=== PATIENT | female | born 1970 | race Caucasian/White ===

== ENCOUNTER 2023-06-21 16:01 | Observation (INO) | payer MEDICAID, SELFPAY ==
[2023-06-19 13:20] LABS: Hematocrit 41.5 % (37-47); Hemoglobin 13.2 g/dL (12.0-15.0); Mean Corp Hgb Conc 31.8 g/dL (32-36); Mean Corpuscular Hgb 30.3 pg (27.0-32.0); Mean Corpuscular Volume 95.2 fL (81-99); Mean Platelet Vol. 11.2 fl (6.2-12.0); Platelet Count 232 K/mm3 (150-450); RBC Distribution Width CV 13.9 % (11.6-14.6); RBC Distribution Width SD 49.1 fl (35.1-43.9); Red Blood Count 4.36 M/mm3 (4.2-5.4); White Blood Count 5.7 K/mm3 (4.4-11.0)
[2023-06-19 13:52] LABS: Vitamin B12 432 pg/mL (211-911); Vitamin D,25 Hydroxy 43.2 ng/mL
[2023-06-19 14:05] LABS: ALB/GLOB Ratio 0.9 RATIO (0.9-2.4); AST(SGOT) 16 U/L (15-37); Alanine Aminotransfer ALT/SGPT 26 U/L (13-56); Albumin, Serum 3.6 g/dL (3.2-5.0); Alkaline Phosphatase 79 U/L (45-117); Anion Gap 6 (5-15); BUN 23 mg/dL (7-18); BUN/Creat Ratio 24.4 RATIO (10-20); Calcium,Total 9.3 mg/dL (8.5-10.1); Chloride 105 mmol/L (98-107); Creatinine, Serum 0.94 mg/dL (0.55-1.02); EST Glomerular Filtration Rate 66 mL/min (>60); Est Glom Filt Rate - Afr Amer 80 mL/min (>60); Ferritin 64 ng/mL (8-252); Globulin 3.9 g/dL (2.2-4.2); Glucose 107 mg/dL (74-106); Prealbumin 22.1 mg/dL (20.0-40.0); Protein, Total 7.5 g/dL (6.4-8.2); Sodium Level 139 mmol/L (136-145); Uric Acid 5.7 mg/dL (2.6-6.0)
[2023-06-19 14:06] LABS: Hemoglobin A1c 6.4 % (3.8-5.6)
[2023-06-19 15:02] LABS: International Normalized Ratio 1.2
[2023-06-21] VITALS (13 sets, daily range): BP systolic 120–170; BP diastolic 54–106; PULSE 80–98; RESP 12–18; TEMP 36–36.9; O2SAT 92–100; BMI 43.5; BMI 44.7
--- NOTE | 2023-06-21 | SOF_PTH ---
PATIENT: YANELIS STANLEY LOC: MS3 U#:[id number] AGE/SX: 52/F ROOM: [facility] RE06/21/[address]: Dr. Chidi Mckee MD : 1970 BED: 1 DIS: 06/22/2023 SPEC #: [id number] RECD: 06/22/23 07:48 STATUS: KIRSTEN RESami #: [id number] LUIS: 06/21/23 00:[address]: Chidi Mckee DEPT: SURGICAL PATHOLOGY RECD BY: Renu Mahmood ENTERED: 06/22/23 07:49 SP TYPE: SOFT TISS OTHR DR: Dr. Clau Grimm MD Tissues: Skin of arm Procedures: Surgery Specimen Level IV HEADER OPERATION: Dermolipectomy right arm and axilla PRE-OP DIAGNOSIS: Excessive skin and subcutaneous tissue right arm and axilla TISSUE SUBMITTED: Excessive skin and subcutaneous tissue right arm and axilla MICROSCOPIC DIAGNOSIS Skin and soft tissue of right arm and axilla, excision: Mature adipose tissue with focal fat necrosis. Skin with no pathologic change. AM:michelle 06/23/2023 MICROSCOPIC DESCRIPTION Slides are reviewed. GROSS DESCRIPTION Received is one container labeled with the patient's name and not further designated. The specimen consists of multiple irregular fragments (>30 fragments) of augustine-yellow fibrofatty tissue and adherent skin ranging in size from 1.0 cm to 28.0 cm. Serial sections reveal yellow fatty tissue. No mass lesions are identified. The skin does not contain any lesions. Cane Flume Chute Operator sections are submitted in four cassettes. / AM:michelle 06/22/2023 TC:5 CPT: 38150
[2023-06-21] MEDS: Lactated Ringers 1,000 ML 15 ML IV (06:39)
[2023-06-21 07:03] LABS: Bedside Glucose 119 mg/dL (74-106)
[2023-06-21] MEDS: Clindamycin 900 MG/50 ML BAG 75 MG IV (07:44)
--- NOTE | 2023-06-21 08:07 | HP.PCM_ITS ---
History and Physical Date of Admission: 06/21/23 HISTORY OF PRESENT ILLNESS 52 year old woman presents for evaluation for body contouring after massive weight loss. She lost about 100 lbs over the past four years with her own dieting and exercise program. With the weight loss comes excessive and redundant skin and subcutaneous tissue involving her bilateral arms, bilateral medial thighs, and lower anterior abdominal wall. Her biggest concern is her bilateral arms. She also is being evaluated by Orthopedics regarding her deteriorating shoulder joints. The excess weight from the excessive and redundant skin and subcutaneous tissue may exacerbate the present state of her shoulder joints. She has trouble with activities of daily living because her arms become painful from bumping into things in her home. Also when she cooks, she has developed some samuels on her arms because of the low hanging skin and subcutaneous tissue. In her bilateral axillary areas she has her arm skin rubbing her axillas leading to irritation and intertrigo for which she uses antifungal powders with minimal relief and without resolution of her symptomatology. She has a large abdominal panniculus that overhangs her abdominal wall skin creases which leads to intertrigo for which she uses antifungal powders with minimal relief and without resolution of her symptomatology. She also has excessive and redundant skin and subcutaneous tissue bilateral medial thighs. The thighs rub together leading to irritation and intertrigo in her bilateral medial thighs that also requires antifungal powders with minimal relief and without resolution of her symptomatology.? She also has back pain issues that are exacerbated by the increased weight in her anterior abdominal wall. ? She has deterioration of her hips and knees as well. She is tentatively scheduled for left hip surgery later on this year. We have received medical approval for her dermolipectomy right arm surgery. It is scheduled for June 21, 2023. She had preop lab work on 06/19/23,, (CBC, CMP, Uric acid, Ferritin, Prealbumin, Vitamin B12, Folate, PT/PTT, Vitamin A, Vitamin D, and HgbA1c). Her WBC was 5.7. Her Hgb was 13.2. Her Platelets were 232k. Potassium was 4.0. BUN/Creat was 23/0.94. Alkaline Phosphatase was 79. Uric Acid was 5.7. Ferritin was 64. Prealbumin was 22.1. Vitamin B12 was 432. Folate was 9.10. PT(INR) was 1.2. PTT was 26.0. Vitamin D was 43.2. Vitamin A was pending. HgbA1c was 6.4. PAST MEDICAL HISTORY Abdominal panniculus Arthritis Asthma Back pain Cancer Chronic bronchitis COPD (chronic obstructive pulmonary disease) Depression Pre-diabetes DVT (deep venous thrombosis) Emphysema lung Excessive and redundant skin and subcutaneous tissue Gastric reflux History of DVT (deep vein thrombosis) History of echocardiogram History of edema History of IBS History of pain when walking History of steroid therapy History of stress test IBS (irritable bowel syndrome) Intertrigo Osteoporosis Panniculitis Recent weight loss Skin laxity Smoker Wears glasses PAST SURGICAL HISTORY History of cardiac catheterization History of esophagogastroduodenoscopy (EGD) History of tonsillectomy History of tubal ligation History of umbilical hernia repair History of varicose vein ligation ALLERGIES Penicillins latex MEDICATIONS albuterol sulfate/actuation aerosol inhaler (Ventolin HFA) cyanocobalamin (vitamin B-12) meloxicam metformin omeprazole calcium carbonate-vitamin D3 cetirizine (Allergy Relief (cetirizine) tizanidine liraglutide subcutaneous pen injector (Victoza 3-Anjel) FAMILY HISTORY Heart disease, Hypertension, Seizures SOCIAL HISTORY Smoking Status: Current some day smoker alcohol intake: never REVIEW OF SYSTEMS General - Denies fever. Has fatigue, and weight loss of about 100 lbs over the past 4 years. Eyes - Denies cataracts and glaucoma. ENT - Denies nasal congestion and sore throat. Has chronic sinus problems. Endocrine - Has excessive thirst and urination. Has heat and cold intolerance. Skin - Denies suspicious lesions and skin cancer. Has intertrigo axillary areas, abdominal wall skin crease, and bilateral medial thighs. Musculoskeletal - Has joint pain, joint stiffness, weakness of muscles and joints, back pain, and arthritis. Neuro - Has headaches. Cardiovascular - Has chest pain and fatigue. Denies shortness of breath with exertion. Psych - Has anxiety and depression. Respiratory - Has chronic cough and shortness of breath.? Has asthma.? Patient is a smoker. Gastrointestinal - Denies nausea, vomiting. Has diarrhea, and constipation. Hematologic - Denies abnormal bruising and bleeding. Genitourinary - Denies hematuria. Has urinary frequency. PHYSICAL EXAMINATION General - Alert and Oriented. Height - 68 inches. Weight - 285 1/2 lbs. BSA - 2.38m2. BMI - 43.4%. HEENT - PERRL. EOMI.? Throat is clear. Neck - Supple and nontender.? No cervical adenopathy. Lungs - Clear to auscultation. Heart - Regular rate and rhythm. Abdomen - Soft and nondistended.? Has a large abdominal panniculus in the lower anterior abdominal wall with associated excessive and redundant skin and subcutaneous tissue from the umbilicus to the pubic area.? Some skin laxity noted. There is some dependent edema noted with associated panniculitis. Has abdominal wall skin crease intertrigo.? No active intertrigo noted at this time.? No evidence of infection.? Some tenderness with palpation. Extremities - FROM. No axillary adenopathy.? Radial pulses are palpable.? There is excessive and redundant skin and subcutaneous tissue on the proximal arms bilaterally.? Some skin laxity noted. Measures 26 x 14 cm on the left and 26 x 16 cm on the right. Some tenderness to palpation.? Has bilateral axillary intertrigo.? No active intertrigo noted at this time.? No evidence of infection. There is excessive and redundant skin and subcutaneous tissue on the medial t highs bilaterally. Some skin laxity noted. Some tenderness to palpation. Has bilateral medial thighs intertrigo. No active intertrigo noted at this time. No evidence of infection. Neuro - CN II-XII grossly intact. Psych - Normal mood and affect. ASSESSMENT 1.? Excessive and redundant skin and subcutaneous tissue bilateral arms. 2. Bilateral axillary intertrigo. 3. Abdominal panniculus with associated excessive and redundant skin and subcutaneous tissue. 4. Abdominal panniculitis. 5. Abdominal wall skin crease intertrigo. 6. Excessive and redundant skin and subcutaneous tissue bilateral medial thighs. 7. Bilateral medial thighs intertrigo. 8. Skin laxity. 9. Recent weight loss. 10. Smoker. PLAN Discussed body contouring with the patient with excessive skin and subcutaneous tissue after massive weight loss.? She would benefit from dermolipectomy bilateral arms, and an abdominal panniculectomy, and dermolipectomy bilateral m edial thighs as it would help to relieve her painful symptomatology. She understands the primary goal of this surgery is to improve her symptomatology as well as to improve hygiene, and cosmetic concerns are secondary. After healing of the arms have occurred, can then address the abdomen and then the bilateral medial thighs. Tissue that is removed will be sent to Pathology for analysis to rule out carcinoma. Drains will be placed for several days and be maintained on antibiotics until the drains are removed.? She will wear compression alem wraps and/or compression garments for 6 weeks for the arms and medial thighs surgery. She will wear an abdominal binder for 6 weeks after her panniculectomy. Surgery will be done under general anesthesia with a surgical observation overnight stay in the hospital.? We have received medical approval for her dermolipectomy of her right arm surgery scheduled later this week on June 21, 2023. After her arms have healed, will address the abdomen next and then the bilateral medial thighs. Letters for those surgeries will also be sent to her insurance carrier for medical approval. If the surgeries are not covered, then she will be financially responsible for the procedures. She voices understanding. Patient was informed of the risks and complications of the procedure including alternatives to surgery.? These were discussed with the patient personally.? He voices understanding and wishes to proceed. Some of the risks and complications were included in a form from the [employer]. Potential risks and complications included but not inclusive of bleeding, infection, seroma, hematoma, bruising, swelling, prolonged need for drains, loss of sensation to skin, partial or complete loss of skin flap, wound breakdown, need for wound care, poor scarring, poor aesthetic outcome, intra operative cardiac or neurologic events, DVT, PE, and reaction to anesthesia. Encouraged patient to stop smoking as it may have deleterious effects on wound healing. Patient had some preop questions. These questions were answered personally and to her satisfaction. Her office consent was signed. She had preop lab work on 06/19/23, (CBC, CMP, Uric acid, Ferritin, Prealbumin, Vitamin B12, Folate, PT/PTT, Vitamin A, Vitamin D, and HgbA1c). Her WBC was 5.7. Her Hgb was 13.2. Her Platelets were 232k. Potassium was 4.0. BUN/Creat was 23/0.94. Alkaline Phosphatase was 79. Uric Acid was 5.7. Ferritin was 64. Prealbumin was 22.1. Vitamin B12 was 432. Folate was 9.10. PT(INR) was 1.2. PTT was 26.0. Vitamin D was 43.2. Vitamin A was pending. HgbA1c was 6.4. Assessment & Plan Assessment/Plan (1) Excessive and redundant skin and subcutaneous tissue: (2) Intertrigo: (3) Abdominal panniculus: (4) Panniculitis: (5) Skin laxity: (6) Recent weight loss: (7) Smoker:
[2023-06-21] MEDS: Lidocaine 1% /Epi 1:100 (50ml) 50 ML VIAL (08:36)
[2023-06-21 15:14] LABS: Bedside Glucose 174 mg/dL (74-106)
--- NOTE | 2023-06-21 15:57 | OP.PCM_ITS ---
Problems Associated Problem List Diagnoses (1) Excessive and redundant skin and subcutaneous tissue: (2) Intertrigo: (3) Abdominal panniculus: (4) Panniculitis: (5) Skin laxity: (6) Recent weight loss: (7) Pre-diabetes: (8) Smoker: Report of Operation Date of Procedure: 06/21/23 Pre-Operative Diagnosis: 1. Excessive and redundant skin and subcutaneous tissue bilateral arms. 2. Bilateral axillary intertrigo. 3. Abdominal panniculus with associated excessive and redundant skin and subcutaneous tissue. 4. Abdominal panniculitis. 5. Abdominal wall skin crease intertrigo. 6. Excessive and redundant skin and subcutaneous tissue bilateral medial thighs. 7. Bilateral medial thighs intertrigo. 8. Skin laxity. 9. Recent weight loss. 10. Pre-diabetes with HgbA1c of 6.4 on 06/19/23. 11. Smoker. Post-Operative Diagnosis: Same. Surgery/Procedure Performed:: Dermolipectomy right arm and axilla with 45 cm layered closure. Description of Surgical Findings:: 52 year old woman presents for evaluation for body contouring after massive weight loss. She lost about 100 lbs over the past four years with her own dieting and exercise program. With the weight loss comes excessive and redundant skin and subcutaneous tissue involving her bilateral arms, bilateral medial thighs, and lower anterior abdominal wall. Her biggest concern is her bilateral arms. She also is being evaluated by Orthopedics regarding her deteriorating shoulder joints. The excess weight from the excessive and redundant skin and subcutaneous tissue may exacerbate the present state of her shoulder joints. She has trouble with activities of daily living because her arms become painful from bumping into things in her home. Also when she cooks, she has developed some samuels on her arms because of the low hanging skin and subcutaneous tissue. In her bilateral axillary areas she has her arm skin rubbing her axillas leading to irritation and intertrigo for which she uses anti fungal powders with minimal relief and without resolution of her symptomatology. She has a large abdominal panniculus that overhangs her abdominal wall skin creases which leads to intertrigo for which she uses antifungal powders with minimal relief and without resolution of her symptomatology. She also has excessive and redundant skin and subcutaneous tissue bilateral medial thighs. The thighs rub together leading to irritation and intertrigo in her bilateral medial thighs that also requires antifungal powders with minimal relief and without resolution of her symptomatology.? She also has back pain issues that are exacerbated by the increased weight in her anterior abdominal wall. ? She has deterioration of her hips and knees as well. She is tentatively scheduled for left hip surgery later on this year. We have received medical approval for her dermolipectomy right arm surgery. It is scheduled for June 21, 2023. She had preop lab work on 06/19/23, (CBC, CMP, Uric acid, Ferritin, Prealbumin, Vitamin B12, Folate, PT/PTT, Vitamin A, Vitamin D, and HgbA1c). Her WBC was 5.7. Her Hgb was 13.2. Her Platelets were 232k. Potassium was 4.0. BUN/Creat was 23/0.94. Alkaline Phosphatase was 79. Uric Acid was 5.7. Ferritin was 64. Prealbumin was 22.1. Vitamin B12 was 432. Folate was 9.10. PT(INR) was 1.2. PTT was 26.0. Vitamin D was 43.2. Vitamin A was pending. HgbA1c was 6.4. Patient was informed of the risks and complications of the procedure including alternatives to surgery. These were discussed with the patient personally. Patient voices understanding and wishes to proceed. Some of the risks and complications were included in a form from the [place] [employer]. Potential risks and complications included but not inclusive of bleeding, infection, seroma, hematoma, bruising, swelling, prolonged need for drains, loss of sensation to skin, partial or complete loss of skin flap, wound breakdown, need for wound care, poor scarring, poor aesthetic outcome, intra operative cardiac or neurologic events, DVT, PE, and reaction to anesthesia. Encouraged patient to stop smoking as it may have deleterious effects on wound healing. IV Fluids - 2000 ml. Urine Output - 200 ml. I used Orestes absorbable hemostat, (I used 3 vials in the right arm). Reference Number - [id number]. Lot Number - [id number]. Device ID Number - [id number]. Expiration - December 03, 2027, (2 vials). Reference Number - [id number]. Lot Number- [id number]. Device ID Number - [id number]. Expiration - November 02, 2027, (One vial). Surgeon: Chidi Mckee MD solar[employer]renewable energy sales: Kayy Quintanilla RNFA Type of Anesthesia: General Anesthesiologist: Papito Fiore MD and Analia Harris CRNA Specimen's removed: Right breast tissue to Pathology. Drains: Patrick. Estimated Blood Loss (mL): 150. Fluids Replaced: 2200 ml (IV Fluids 2000 ml, Urine Output 200 ml). Description of Procedure: In the preop area, the patient abducted her right shoulder with her elbow flexed, and I marked out the bicipital groove and a couple cm above that. Doing a pinch test, I estimated the posterior markings that met in the axilla. I extended the markings from the deltopectoral groove onto the lateral chest wall. Patient was taken to OR in supine position and was placed under general anesthesia. The right arm and axilla area was prepped and draped in the usual fashion. SCD's were placed for DVT prophylaxis. Perioperative antibiotics were given intravenously. A meier catheter was placed. Using xylocaine with epinephrine, the markings were infiltrated. After waiting 5 minutes for the anesthetic to take effect, I made a superior incision from the distal arm and moving proximally to the deltopectoral groove. I stayed superior to the medial epicondyle so as not to place the scar over the ulnar nerve in the cubital tunnel. The incision was carried down into the subcutaneous tissue. I located the basilic vein and stayed superficial distally to minimize injury to the medial antebrachial cutaneous nerve. As I dissected proximally toward the axilla I went just a little deeper but left some subcutaneous tissue on the underlying muscular fascia. After the dissection was done up to the axilla, I pulled the posterior skin flap upward and made several case along the incision line. I tacked the posterior skin flap at these case. I then excised the excess tissue starting distally at the elbow and moving proximally. By tailor tacking the posterior skin flap, I was able to gauge the amount of tissue to remove safely to minimize over-resection. The deep subcutaneous tissue and fascia was approximated with 2-0 Vicryl simple interrupted sutures. At the level of the deltopectoral groove, I anchored a suture with 2-0 Vicryl from the fascia of the posterior skin flap to the deltopectoral fascia. This allowed any excess tissue to blend in to the lateral chest wall extension. At this level, I excised down to the chest wall fascia. Prior to final closure, I irrigated the wound with saline. Hemostasis was obtained with electrocautery. I sprayed Orestes absorbable hemostat into the wound to minimize seroma formation. I used 3 vials. I placed a size 15 Patrick drain through a separate stab incision inferiorly on the lateral chest wall and secured to the skin with a 3-0 Nylon purse string suture. I started closing the right arm wound distally with 3-0 Monocryl interrupted sutures for the underlying Dee's fascia and finished at the lateral chest wall. The deep dermis and subcutaneous tissue was approximated with 3-0 Monocryl interrupted sutures. I didn't want to make the axillary closure too tight to avoid possible scar contracture. If that were to happen, then a Z-plasty scar revision would be necessary. Before I did the skin closure, I lifted the arm and good contour was noted without too much tension. The skin was approximated with 3-0 V lock unidirectional barbed running subcuticular suture. I placed a few 4-0 Prolene simple interrupted sutures mostly in the axillary area. This was followed by Histoacryl skin tissue adhesive. The length of the layered closure in the right arm and axilla was 45 cm. I placed Xeroform gauze around the drain along with some antibiotic ointment. Gauze dressing was applied followed by Kerlix gauze and ABD pads followed by alem wrap compression. The tissue that was excised was sent to Pathology for analysis to rule out carcinoma. Patient tolerated the procedure well and was sent to PACU in satisfactory condition. Patient will be sent upstairs for continued postop care. She will be discharged tomorrow on antibiotics and pain medication. She will keep her right arm elevated during the initial postoperative period. Will apply a compression garment in the office after the drain is removed. She will followup in the office next week. The sutures will be removed in two weeks. The drain will be removed in 10-14 days. Grafts/Implants Used: Orestes Procedure Start Time: 08:37 Procedure Stop Time: 14:31 Complications None. Admit VTE Documentation VTE Present on Admission: No VTE Mechan Device Prophylaxis: SCD's and Thigh High PAULIE Hose Addendum Addendum: Surgery Charges CPT - 13389 ICD-10 - L98.7, L30.4, E65, M79.3, L57.4, R63.4, R73.03, F17.200 14524 L98.7, L30.4, E65, M79.3, L57.4, R63.4, R73.03, F17.200
[2023-06-21] MEDS: oxyCODONE 5 MG Tablet 10 MG PO ×2 (18:15→22:39)
[2023-06-21] MEDS: Clindamycin 600 MG/50 ML BAG 100 MG IV (22:15)
[2023-06-21] MEDS: Docusate Sodium 100 MG Capsule PO (22:15)
[2023-06-21] MEDS: Juven (unflavored) Packet 1 PACKET PO (22:15)
[2023-06-21] MEDS: metFORMIN HCl 500 MG Tablet PO (22:15)
[2023-06-21] MEDS: Heparin Injection (Vial) 5,000 UNIT/ML VIAL 5000 UNIT SC (22:16)
[2023-06-21] MEDS: tiZANidine HCl 2 MG Tablet PO (22:39)
[2023-06-21] MEDS: Meloxicam 15 MG Tablet PO (22:53)
[2023-06-22 02:54] VITALS: BP 133/51; PULSE 98; RESP 18; TEMP 36.7; O2SAT 96
[2023-06-22] MEDS: oxyCODONE 5 MG Tablet 10 MG PO ×2 (03:47→09:06)
[2023-06-22 06:17] VITALS: BP 128/59; PULSE 84; RESP 16; TEMP 36.6; O2SAT 99
[2023-06-22] MEDS: Clindamycin 600 MG/50 ML BAG 100 MG IV (06:19)
[2023-06-22 07:07] LABS: Hematocrit 36.3 % (37-47); Hemoglobin 11.5 g/dL (12.0-15.0); Mean Corp Hgb Conc 31.7 g/dL (32-36); Mean Corpuscular Hgb 30.3 pg (27.0-32.0); Mean Corpuscular Volume 95.8 fL (81-99); Mean Platelet Vol. 11.7 fl (6.2-12.0); Platelet Count 195 K/mm3 (150-450); RBC Distribution Width CV 13.9 % (11.6-14.6); RBC Distribution Width SD 49.1 fl (35.1-43.9); Red Blood Count 3.79 M/mm3 (4.2-5.4); White Blood Count 9.7 K/mm3 (4.4-11.0)
[2023-06-22 07:38] LABS: Anion Gap 7 (5-15); BUN 26 mg/dL (7-18); Calcium,Total 8.3 mg/dL (8.5-10.1); Chloride 106 mmol/L (98-107); Creatinine, Serum 0.81 mg/dL (0.55-1.02); EST Glomerular Filtration Rate 78 mL/min (>60); Est Glom Filt Rate - Afr Amer 95 mL/min (>60); Estimated Creatinine Clearance 81.96 ml/min; Glucose 169 mg/dL (74-106); Potassium 4.2 mmol/L (3.5-5.1); Sodium Level 138 mmol/L (136-145)
[2023-06-22] MEDS: Heparin Injection (Vial) 5,000 UNIT/ML VIAL 5000 UNIT SC (09:00)
[2023-06-22] MEDS: metFORMIN HCl 500 MG Tablet PO (09:00)
[2023-06-22] MEDS: Calcium Carb/Vitamin D 1 TABLET Tablet PO (09:00)
[2023-06-22] MEDS: Docusate Sodium 100 MG Capsule PO (09:00)
[2023-06-22] MEDS: Juven (unflavored) Packet 1 PACKET PO (09:00)
[2023-06-22] MEDS: Pantoprazole Sodium 40 MG Tablet PO (09:01)
[2023-06-22] MEDS: tiZANidine HCl 2 MG Tablet PO (09:10)
[2023-06-22 09:14] VITALS: BP 117/65; PULSE 85; RESP 16; TEMP 36.6; O2SAT 100
[2023-06-22] MEDS: Meloxicam 15 MG Tablet PO (11:35)
--- NOTE | 2023-06-22 13:11 | DCINST_ITS ---
Discharge Instructions Diet Discharge Diet: Carb Control Diet (Encourage increase protein intake to help with wound healing.) Activity Discharge Activity: May Not Drive (for 2 weeks) Lifting Restrictions: 5-10 lifting restriction Additional Activity Instructions:: Avoid lifting right arm over head. Dressing / Incision Call your doctor if your incision/area has: Continuous Slow Oozing, Sudden Increased Bleeding, Increased Pain/ Swelling, Increased Redness and Foul Smelling Discharge Call your doctor if you observe: Fever of 101 or Higher, Inability to urinate, Inability to have a bowel movement, Shortness of breath, Chest pain, Calf discomfort and Uncontrolled pain Change Dressing in: leave in place till F/U (change dressing as needed. Keep compression JODY wrap in place.) Cleanse incision/area with: Keep Dressing Clean & Dry Drain: Suction Additional Dressing/Incision Instructions:: Keep track of drainage. Bring with you to the office next week. Follow Up Care Please Follow Up With: Chidi Mckee MD When: Please call the office to be seen next week by either Dr. Mckee or Dia. [phone] Test Results: Test results from this visit will be discussed in further detail at your follow- up appointment, if applicable. Discharge Plan Admission Admit Date/Time: 06/21/23 16:01 Attending Provider: Chidi Mckee Primary Care Provider: Clau Grimm Discharge Orders/Prescriptions Prescriptions: New clindamycin HCl 300 mg capsule 300 mg PO TID 30 Days Qty: 90 0RF Saccharomyces boulardii [Probiotic (S.boulardii)] 250 mg capsule 250 mg PO BID 20 Days Qty: 40 0RF hydrocodone-acetaminophen 5-300 mg tablet 1 tab PO TID PRN (Reason: pain (scale score 7-10)) 7 Days Qty: 21 0RF Rx Instructions: May take up to 3 times during day time hours oxycodone-acetaminophen [Percocet] 5-325 mg tablet 1 tab PO QHS PRN PRN (Reason: pain (scale score 7-10)) 7 Days Qty: 7 0RF Continued cyanocobalamin (vitamin B-12) 1,000 mcg/mL solution 1,000 mcg IM .Q2 WEEKS metformin 500 mg tablet 500 mg PO BID albuterol sulfate [Ventolin HFA] 90 mcg/actuation HFA aerosol inhaler 2 puff inhalation Q4H PRN (Reason: shortness of breath or wheezing) Patient Comments: inhale 2 puffs by mouth every 4 hours if needed for shortness of breath or wheezing omeprazole 40 mg capsule,delayed release(DR/EC) 40 mg PO PRN Victoza 3-Anjel 0.6 mg/0.1 mL (18 mg/3 mL) pen injector 0.6 mg subcut DAILY cetirizine [Allergy Relief (cetirizine)] 10 mg tablet 10 mg PO DAILY PRN (Reason: ALLERGIES) calcium carbonate-vitamin D3 500 mg-3.125 mcg (125 unit) tablet 1 tab PO DAILY tizanidine 2 mg tablet 2 mg PO PRN Patient Comments: take 1 tablet by mouth three times a day for 30 DAYS Held meloxicam 15 mg tablet 15 mg PO DAILY Hold Instructions: Resume on 06/25/23. Please hold until 06/25 to help preve nt bleeding Referrals / Follow Up: Clau Grimm MD [Primary Care Provider] - Disposition Disposition (needs filled in before D/C Order can be placed): Home, Self Care
--- NOTE | 2023-06-22 13:11 | PCM.PN.SRG ---
Subjective Subjective Postop #1 Patient states pain is well controlled. Objective Data Objective Data Vital Signs: Vital Signs Temp Pulse Resp BP Pulse Ox O2 Del Method 97.9 F 85 16 117/65 100 Room Air 06/22/23 09:14 06/22/23 09:14 06/22/23 09:14 06/22/23 09:14 06/22/23 09:14 06/22/23 09:42 Oxygen Delivery Method Room Air Weight: 294 lb 1.546 oz Body Mass Index (BMI) 44.7 Intake & Output: Intake and Output for Last 24 Hours 06/20/23 06/21/23 06/22/23 23:59 23:59 23:59 Intake Total 2247.75 / 2247.75 1585.25 / 1585.25 Output Total 1620 / 1620 705 / 705 Balance 627.75 / 627.75 880.25 / 880.25 Patrick drain 115 ml Lab / Micro Data Attestation: I reviewed the patient's lab results. 06/22/23 06:25 06/22/23 06:25 Labs: Laboratory Results - last 24 hr 06/21/23 14:56: POC Glucose 174 H 06/22/23 06:25: WBC 9.7, RBC 3.79 L, Hgb 11.5 L, Hct 36.3 L, MCV 95.8, MCH 30.3, MCHC 31.7 L, RDW Std Deviation 49.1 H, RDW Coeff of Leonora 13.9, Plt Count 195, MPV 11.7, Sodium 138, Potassium 4.2, Chloride 106, Carbon Dioxide 25.0, Anion Gap 7, BUN 26 H, Creatinine 0.81, Estim Creat Clear Calc 81.96, Est GFR (MDRD) Af Amer 95, Est GFR (MDRD) Non-Af 78, BUN/Creatinine Ratio 32.0 H, Glucose 169 H, Calcium 8.3 L, Prealbumin 17.0 L Physical Exam Const oriented x3 Resp normal respiratory effort Effort and Inspection: able to speak in complete sentences Cardio regular rate Extremity Extremity Narrative: Right arm with swelling. Patrick drain in place. Mild bruising along incision line. Incision dry and intact. Assessment & Plan Assessment/Plan (1) Excessive and redundant skin and subcutaneous tissue: (2) Skin laxity: (3) Recent weight loss: (4) Pre-diabetes: (5) Smoker: (6) History of excision of mass: (7) Acute post-operative pain: PLAN: Plan Patient is doing well. Pain well controlled. Operative dressing changed. Right arm incision dry and intact. Mild bruising present. Patrick drain draining serosanguineous drainage. Placed dry dressing covered with Kerlix and topped with JODY wrap for compression. Instructed her to be careful lifting her arms in the immediately postoperative period. Hgb 11.5, Platelets 195, BUN 26/Creatinine 0.81. Prealbumin 17.0. Encouraged increased protein intake to help with wound healing. Discharge home today. Continue clindamycin until the drain comes out. Encouraged patient to stop smoking as it may have deleterious effects on wound healing. Follow up next week in the office. Instructed to keep track of drainage amount.
[2023-06-22 13:41] VITALS: BP 134/75; PULSE 98; RESP 18; TEMP 36.7; O2SAT 100
--- NOTE | 2023-06-22 14:04 | CASEMGMT ---
Pt. has order for discharge. RM CM in to pt. room to discuss needs at D/C. Pt. states she feels comfortable with caring for her drain at home and denies having any other needs at this time. Pt. denies having any additional questions/concerns.
[2023-06-24 11:08] LABS: Vitamin A, Retinol 43.9 ug/dL (20.1-62.0)
== END 2023-06-22 14:23 | disposition home or self-care (01) ==
LOC: SDC 17:33 → MS3 17:33
PROVIDERS: Admitting Provider Surgery; Referring Provider Surgery; Visit Provider Surgery
PROC: (CPT 15836; principal; 2023-06-21 07:15)
DX: L98.7 Excessive and redundant skin and subcutaneous tissue (principal); J43.9 Emphysema, unspecified; R63.4 Abnormal weight loss; R73.03 Prediabetes; F17.200 Nicotine dependence, unspecified, uncomplicated; L30.4 Erythema intertrigo; M79.3 Panniculitis, unspecified; Z79.899 Other long term (current) drug therapy; L57.4 Cutis laxa senilis; E65 Localized adiposity; Z86.718 Personal history of other venous thrombosis and embolism; K21.9 Gastro-esophageal reflux disease without esophagitis; M19.90 Unspecified osteoarthritis, unspecified site; Z87.19 Personal history of other diseases of the digestive system; Z87.898 Personal history of other specified conditions
CPT/HCPCS: 15836; 00400; 36415; 80048; 80053; 82306; 82607; 82728; 82746; 82962; 83036; 84134; 84550; 84590; 85027; 85610; 85730; 88305; 94668; 96365; 96366; 96372; 99221; 99252; 99406; J7120; G0378; G0463; J2405

== ENCOUNTER → 2023-06-28 | Outpatient (CLI) | payer MEDICAID, SELFPAY ==
--- NOTE | 2023-06-28 15:17 | VDLE_ITS ---
Reason For Study: Pain LLE Procedure LEFT This is a venous duplex using B-mode, color CFV is compressible, spontaneous, phasic, flow and spectral Doppler. competent, and demonstrates normal Exam performed in department. augmentation. The study was technically difficult. FV is compressible, spontaneous, phasic, The study was technically limited. competent and demonstrates normal A preliminary report was called and/or faxed augmentation. to Dia Isabel E BUSINESS PROJECT MANAGER. POP V is compressible, phasic, and INCOMPETENT for greater than 1.0 second. T/P Trunk is compressible. PTV is compressible. Lt GSV is partially compressible with bright intraluminal echoes consistent with chronic SVT Very difficult to visualize calf veins due to patient body habitus Lt PeroV not visualized. VL/Venous Duplex US, Unilateral Interpretation Summary Chronic superficial vein thrombosis is noted in the left great saphenous vein. Deep veins of the left lower extremity are patent and compressible segmentally. There is no evidence of left lower extremity deep vein thrombosis. Incidental finding, left popliteal reflux Limited study due to body habitus Ordering Physician: Dai Isabel Referring Physician: Clau Grimm Performed By: Angelica Solano, JAISON, RVT
== END | disposition home or self-care (01) ==
LOC: CVS 15:16
PROVIDERS: Referring Provider Nurse Practitioner Family; Visit Provider Nurse Practitioner Family
DX: M79.652 Pain in left thigh (principal); Z86.718 Personal history of other venous thrombosis and embolism; Z98.890 Other specified postprocedural states
CPT/HCPCS: 93971

== ENCOUNTER 2023-07-02 11:45 | Emergency (ER) | payer MEDICAID, SELFPAY ==
[2023-07-02 11:46] VITALS: BP 148/86; PULSE 90; RESP 16; TEMP 36.6; O2SAT 100; BMI 45.0
--- NOTE | 2023-07-02 12:26 | EDS_ITS ---
HPI <FERNANDO Medrano - Last Filed: 07/02/23 14:08> History of Present Illness Chief Complaint: Wound Check Narrative Narrative: Patient presents for a wound check. She had right arm and axillary skin and fat removal (dermal lipectomy) with Dr. Mckee on 06/21. She had a postop appointment on 06/28 and states things were healing well. She still has a drain in place which has about 10 to 20 cc output a couple times a day. The day after her appointment on she noticed small openings in the armpit area and today the openings drained a lot of yellow foul-smelling fluid. She has no fever or chills. She has no pain. She has been wearing the compression garments as instructed. She is on clindamycin 3 times a day since surgery. [facility] <FERNANDO Medrano - Last Filed: 07/02/23 14:08> [facility] Medical History (Updated 07/02/23 @ 13:45 by FERNANDO Medrano) Abdominal panniculus Arthritis Asthma Back pain Cancer Chronic bronchitis COPD (chronic obstructive pulmonary disease) Depression Diabetes DVT (deep venous thrombosis) Emphysema lung Excessive and redundant skin and subcutaneous tissue Former smoker Gastric reflux History of DVT (deep vein thrombosis) History of echocardiogram History of edema History of IBS History of pain when walking History of steroid therapy History of stress test IBS (irritable bowel syndrome) Intertrigo Osteoporosis Panniculitis Pre-diabetes Recent weight loss Seasonal allergies Skin laxity Wears glasses Home Medications albuterol sulfate 90 mcg/actuation aerosol inhaler (Ventolin HFA) 2 puff inhalation Q4H PRN shortness of breath or wheezing 01/24/23 [History Last Taken Unknown] cyanocobalamin (vitamin B-12) 1,000 mcg/mL injection solution 1,000 mcg IM .Q2 WEEKS 01/24/23 [History Last Taken Unknown] meloxicam 15 mg tablet 15 mg PO DAILY 01/24/23 [History Last Taken Unknown] metformin 500 mg tablet 500 mg PO BID 01/24/23 [History Last Taken Unknown] omeprazole 40 mg capsule,delayed release 40 mg PO PRN 01/24/23 [History Last Taken 06/21/23] calcium carbonate 500 mg-vitamin D3 3.125 mcg (125 unit) tablet 1 tab PO DAILY 06/07/23 [History Last Taken Unknown] cetirizine 10 mg tablet (Allergy Relief (cetirizine)) 10 mg PO DAILY PRN ALLERGIES 06/07/23 [History Last Taken Unknown] tizanidine 2 mg tablet 2 mg PO PRN 06/07/23 [History Last Taken Unknown] liraglutide 0.6 mg/0.1 mL (18 mg/3 mL) subcutaneous pen injector (Victoza 3-Anjel) 0.6 mg subcut DAILY 06/19/23 [History Last Taken Unknown] Saccharomyces boulardii 250 mg capsule (Probiotic (S.boulardii)) 250 mg PO BID 20 days #40 caps 06/22/23 [Rx Last Taken Unknown] clindamycin HCl 300 mg capsule 300 mg PO TID 30 days #90 caps 06/22/23 [Rx Last Taken Unknown] hydrocodone 5 mg-acetaminophen 300 mg tablet 1 tab PO TID PRN pain (scale score 7-10) 7 days #21 tabs 06/22/23 [Rx Last Taken Unknown] oxycodone-acetaminophen 5 mg-325 mg tablet (Percocet) 1 tab PO QHS PRN PRN pain (scale score 7-10) 7 days #7 tabs 06/22/23 [Rx Last Taken Unknown] docusate sodium 100 mg capsule (Colace) 100 mg PO BID 30 days #60 caps 06/23/23 [Rx Last Taken Unknown] hydrocodone-acetaminophen 5-325mg 5mg-325mg 1 tab PO Q6H PRN pain (scale score 7-10) 7 days #28 tabs 06/28/23 [Rx Last Taken Unknown] Allergy/AdvReac Type Severity Reaction Status Date / Time Penicillins Allergy Severe Anaphylaxis Verified 07/02/23 11:49 latex Allergy Mild Rash Verified 07/02/23 11:49 Family History Other Heart disease Hypertension Seizures Surgical History History of cardiac catheterization History of esophagogastroduodenoscopy (EGD) History of excision of mass History of tonsillectomy History of tubal ligation History of umbilical hernia repair History of varicose vein ligation Social History Smoking Status: Current some day smoker tobacco type: cigars alcohol intake: never ROS <FERNANDO Medrano - Last Filed: 07/02/23 14:08> ROS ED ROS Narrative Constitutional: Negative for fever, chills, malaise. GI: Negative for nausea, vomiting. Skin: Positive for wound. Musc: Negative for joint pain, swelling. EXAM <FERNANDO Medrano - Last Filed: 07/02/23 14:08> Physical Exam Narrative Exam Narrative: CONST: Patient sitting in no acute distress. EYES: Normal inspection. NECK: Normal inspection. RESP: No respiratory distress, CTAB. CVS: Regular rate and rhythm, no murmur, no gallop. SKIN: Large linear incision extending from right lateral chest wall through the axilla and down the medial bicep to the elbow. There is a 5 mm area of dehiscence in the axillary region with no active drainage. There is no fluctuance or crepitus and no cellulitis in the axilla. The bicep region is post-operatively swollen and the distal aspect is slightly red. Full range of motion of all joints, 2+ radial pulse. NEURO: Oriented x4. PSYCH: Normal affect. Const Vital Signs: 07/02/23 11:46 Temperature 98 F Temperature Source Temporal Pulse Rate 90 Respiratory Rate 16 Blood Pressure 148/86 H Blood Pressure Mean 106 Pulse Ox 100 Oxygen Delivery Method Room Air <Chris Deras MD - Last Filed: 07/02/23 19:18> Physical Exam Const Vital Signs: 07/02/23 11:46 Temperature 98 F Temperature Source Temporal Pulse Rate 90 Respiratory Rate 16 Blood Pressure 148/86 H Blood Pressure Mean 106 Pulse Ox 100 Oxygen Delivery Method Room Air MDM <FERNANDO Medrano - Last Filed: 07/02/23 14:08> MDM MDM Narrative Medical decision making narrative: History gathered from: Patient and family member Patient is 11 days postop from a right axillary and arm skin removal. She has a small dehisced area in the axillary region which she states had yellow foul- smelling drainage earlier. There is no drainage presently. It is slightly red around the distal bicep incision but she states it looked similar when she saw Dr. Mckee in the office. Extremity is neurovascularly intact. She has no systemic symptoms and has normal vital signs. White count is 5.8. I spoke with Dr. Mckee who did not think she needed admitted. He states he puts a potato starch substance inside the wound to promote healing and sometimes it drains as a yellow gel. He recommended sending a wound culture and that she continue the oral clindamycin and call his office tomorrow for close follow-up. Consults: Plastic surgery Lab Data Labs: Laboratory Results - last 24 hr 07/02/23 12:55 WBC 5.8 RBC 4.19 L Hgb 12.6 Hct 39.9 MCV 95.2 MCH 30.1 MCHC 31.6 L RDW Std Deviation 48.1 H RDW Coeff of Leonora 13.7 Plt Count 299 MPV 11.5 Immature Gran % (Auto) 0.300 Neut % (Auto) 59.4 Lymph % (Auto) 29.2 [place] % (Auto) 8.0 Eos % (Auto) 2.4 Baso % (Auto) 0.7 Absolute Neuts (auto) 3.4 Absolute Lymphs (auto) 1.68 Nucleated RBC % 0 Sodium 139 Potassium 4.1 Chloride 106 Carbon Dioxide 27.0 Anion Gap 6 BUN 19 H Creatinine 0.67 Estim Creat Clear Calc 99.08 Est GFR (MDRD) Af Amer 119 Est GFR (MDRD) Non-Af 98 BUN/Creatinine Ratio 28.4 H Glucose 114 H Calcium 9.1 <Chris Deras MD - Last Filed: 07/02/23 19:18> MDM MDM Narrative Medical decision making narrative: History gathered from: Patient and family member Patient is 11 days postop from a right axillary and arm skin removal. She has a small dehisced area in the axillary region which she states had yellow foul- smelling drainage earlier. There is no drainage presently. It is slightly red around the distal bicep incision but she states it looked similar when she saw Dr. Mckee in the office. Extremity is neurovascularly intact. She has no systemic symptoms and has normal vital signs. White count is 5.8. I spoke with Dr. Mckee who did not think she needed admitted. He states he puts a potato starch substance inside the wound to promote healing and sometimes it drains as a yellow gel. He recommended sending a wound culture and that she continue the oral clindamycin and call his office tomorrow for close follow-up. Consults: Plastic surgery, discussed with Dr. Rylee Deras: I have personally performed a face to face assessment of the patient and have reviewed the LILIA Note. I performed a substantive portion of the visit including all aspects of the following. My esparza findings include: History is wound dehiscence right axillary area with reported drainage. Exam is afebrile. Vital signs noted, more proximal wound dehiscence with minimal erythema. No fluctuance. Medical Decision Making: Check labs. Patient already on clindamycin. Discussed with Dr. Mckee. Follow-up tomorrow. I do not feel she requires observation at this time. Disposition is discharged home in stable condition. Other additions or changes: [None] History & Record Review Discussion w/independent historian: Patient Lab Data Attestation: I reviewed the patient's lab results. Labs: Laboratory Results - last 24 hr 07/02/23 12:55 WBC 5.8 RBC 4.19 L Hgb 12.6 Hct 39.9 MCV 95.2 MCH 30.1 MCHC 31.6 L RDW Std Deviation 48.1 H RDW Coeff of Leonora 13.7 Plt Count 299 MPV 11.5 Immature Gran % (Auto) 0.300 Neut % (Auto) 59.4 Lymph % (Auto) 29.2 [place] % (Auto) 8.0 Eos % (Auto) 2.4 Baso % (Auto) 0.7 Absolute Neuts (auto) 3.4 Absolute Lymphs (auto) 1.68 Nucleated RBC % 0 Sodium 139 Potassium 4.1 Chloride 106 Carbon Dioxide 27.0 Anion Gap 6 BUN 19 H Creatinine 0.67 Estim Creat Clear Calc 99.08 Est GFR (MDRD) Af Amer 119 Est GFR (MDRD) Non-Af 98 BUN/Creatinine Ratio 28.4 H Glucose 114 H Calcium 9.1 Discharge Plan Triage Chief Complaint: Wound Check ED Midlevel Provider: Misty Martin ED Provider: Chris Deras Dx/Rx/DC Orders Clinical Impression: Visit for wound check, Dehiscence of wound Instructions: ED Wound Care Prescriptions: No Action cyanocobalamin (vitamin B-12) 1,000 mcg/mL solution 1,000 mcg IM .Q2 WEEKS metformin 500 mg tablet 500 mg PO BID meloxicam 15 mg tablet 15 mg PO DAILY Hold Instructions: Resume on 06/25/23. Please hold until 06/25 to help prevent bleeding albuterol sulfate [Ventolin HFA] 90 mcg/actuation HFA aerosol inhaler 2 puff inhalation Q4H PRN (Reason: shortness of breath or wheezing) Patient Comments: inhale 2 puffs by mouth every 4 hours if needed for shortness of breath or wheezing omeprazole 40 mg capsule,delayed release(DR/EC) 40 mg PO PRN Victoza 3-Anjel 0.6 mg/0.1 mL (18 mg/3 mL) pen injector 0.6 mg subcut DAILY hydrocodone-acetaminophen 5-325 mg tablet 1 tab PO Q6H PRN (Reason: pain (scale score 7-10)) 7 Days Qty: 28 0RF cetirizine [Allergy Relief (cetirizine)] 10 mg tablet 10 mg PO DAILY PRN (Reason: ALLERGIES) calcium carbonate-vitamin D3 500 mg-3.125 mcg (125 unit) tablet 1 tab PO DAILY tizanidine 2 mg tablet 2 mg PO PRN Patient Comments: take 1 tablet by mouth three times a day for 30 DAYS clindamycin HCl 300 mg capsule 300 mg PO TID 30 Days Qty: 90 0RF Saccharomyces boulardii [Probiotic (S.boulardii)] 250 mg capsule 250 mg PO BID 20 Days Qty: 40 0RF hydrocodone-acetaminophen 5-300 mg tablet 1 tab PO TID PRN (Reason: pain (scale score 7-10)) 7 Days Qty: 21 0RF Rx Instructions: May take up to 3 times during day time hours oxycodone-acetaminophen [Percocet] 5-325 mg tablet 1 tab PO QHS PRN PRN (Reason: pain (scale score 7-10)) 7 Days Qty: 7 0RF docusate sodium [Colace] 100 mg capsule 100 mg PO BID 30 Days Qty: 60 0RF Primary Care Provider: Clau Grimm Referrals: Clau Grimm MD [Primary Care Provider] - Activity Restrictions/Additional Instructions: Call Dr. Mckee's office tomorrow morning Disposition Disposition: Home, Self Care Discharge Date/Time: 07/02/23 14:41
[2023-07-02 13:05] LABS: Absolute Lymphocyte Count 1.68 X10^3/uL (0.83-4.51); Absolute Neutrophil Count 3.4 X10^3/uL (2.0-7.7); Basophil# 0.04 X10^3/uL; Basophil% 0.7 % (0-1); Eosinophil# 0.14 X10^3/uL; Eosinophils% 2.4 % (0-5); Hematocrit 39.9 % (37-47); Hemoglobin 12.6 g/dL (12.0-15.0); Lymphocyte # 1.68 X10^3/ul (0.83-4.51); Lymphocyte % 29.2 % (19-41); Mean Corp Hgb Conc 31.6 g/dL (32-36); Mean Corpuscular Hgb 30.1 pg (27.0-32.0); Mean Corpuscular Volume 95.2 fL (81-99); Mean Platelet Vol. 11.5 fl (6.2-12.0); Monocyte# 0.46 X10^3/uL; NRBC Flagged by Analyzer 0 % (0-5); Neutrophil # 3.42 X10^3/uL (2.7-7.7); Neutrophil % 59.4 % (47-70); Platelet Count 299 K/mm3 (150-450); RBC Distribution Width CV 13.7 % (11.6-14.6); RBC Distribution Width SD 48.1 fl (35.1-43.9); Red Blood Count 4.19 M/mm3 (4.2-5.4); White Blood Count 5.8 K/mm3 (4.4-11.0)
[2023-07-02 13:15] LABS: Anion Gap 6 (5-15); BUN 19 mg/dL (7-18); BUN/Creat Ratio 28.4 RATIO (10-20); Calcium,Total 9.1 mg/dL (8.5-10.1); Chloride 106 mmol/L (98-107); Creatinine, Serum 0.67 mg/dL (0.55-1.02); EST Glomerular Filtration Rate 98 mL/min (>60); Est Glom Filt Rate - Afr Amer 119 mL/min (>60); Estimated Creatinine Clearance 99.08 ml/min; Glucose 114 mg/dL (74-106); Potassium 4.1 mmol/L (3.5-5.1); Sodium Level 139 mmol/L (136-145)
[2023-07-02] MEDS: Clindamycin HCl 150 MG Capsule 300 MG PO (13:50)
== END 2023-07-02 14:41 | disposition home or self-care (01) ==
PROVIDERS: Physician Assistant; Emergency Provider Emergency Medicine; Visit Provider Emergency Medicine
DX: T81.31XA Disruption of external operation (surgical) wound, not elsewhere classified, initial encounter (principal); E11.9 Type 2 diabetes mellitus without complications; F17.200 Nicotine dependence, unspecified, uncomplicated; Z98.890 Other specified postprocedural states; Y83.8 Other surgical procedures as the cause of abnormal reaction of the patient, or of later complication, without mention of misadventure at the time of the procedure
CPT/HCPCS: 80048; 85025; 87070; 87205; 99282; A4216

== ENCOUNTER → 2023-07-27 | Outpatient (CLI) | payer MEDICAID, SELFPAY | END | disposition home or self-care (01) | PROVIDERS: Referring Provider Nurse Practitioner Family; Visit Provider Nurse Practitioner Family | DX: L02.413 Cutaneous abscess of right upper limb (principal); E11.9 Type 2 diabetes mellitus without complications; Z86.19 Personal history of other infectious and parasitic diseases; T81.89XA Other complications of procedures, not elsewhere classified, initial encounter; Z98.890 Other specified postprocedural states; X58.XXXA Exposure to other specified factors, initial encounter | CPT/HCPCS: 87070; 87075; 87077; 87186; 87205 ==

== ENCOUNTER 2023-12-29 08:15 | Day surgery (SDC) | payer MEDICAID, SELFPAY ==
--- NOTE | 2023-12-29 | UL_PTH ---
PATIENT: YANELIS STANLEY [place] [facility] [place][id number] AGE/SX: 53/F ROOM: RE12/29/[address]: Dr. Chidi Mckee MD : 1970 BED: DIS: 12/29/2023 SPEC #: [id number] RECD: 12/29/23 12:33 STATUS: KIRSTEN RESami #: [id number] LUIS: 12/29/23 00:[address]: Chidi Mckee DEPT: SURGICAL PATHOLOGY RECD BY: Gaetano Polanco ENTERED: 01/02/24 10:11 SP TYPE: ULCER OTHR DR: Dr. Clau Grimm MD Tissues: A - Arm, NOS B - Arm, NOS Procedures: Surgery Specimen Level III HEADER OPERATION: Surgical preparation right arm with excisional debridement PRE-OP DIAGNOSIS: Skin ulcer right axilla fat layer exposed, delayed surgical wound healing right distal upper arm, abscess right distal upper arm TISSUE SUBMITTED: Right distal upper arm non healing MRSA ulcer MICROSCOPIC DIAGNOSIS Right distal upper arm ulcer, excision: Dermal acute and chronic inflammation and microabscess formation. Benign histiocytic reaction. Skin with ulceration, acute and chronic inflammation and granulation. Epidermal inclusion cysts. / 01/03/2024 MICROSCOPIC DESCRIPTION Slides are reviewed. GROSS DESCRIPTION Received in fixative is one container labeled with the patient's name and designated Right distal upper arm. The specimen consists of multiple irregular fragments of augustine-yellow fibrofatty tissue ranging in size from 1.5 to 10.6cm. The larger fragments contain attached unremarkable augustine skin. Serial sections do not reveal mass lesions. Tour Operator sections are submitted in three cassettes. / 01/02/2024 TC:2 CPT:83165
[2023-12-29 08:54] VITALS: BP 147/87; PULSE 83; RESP 17; TEMP 36.6; O2SAT 99; BMI 45.9
[2023-12-29] MEDS: Lactated Ringers 1,000 ML 15 ML IV (08:54)
[2023-12-29 09:29] LABS: Bedside Glucose 158 mg/dL (74-106)
[2023-12-29] MEDS: Vancomycin IV 1,000 MG/200 ML BAG 200 MG IV (09:59)
[2023-12-29] MEDS: Lidocaine 1% /Epi 1:100 (20ml) 20 ML Vial (10:22)
[2023-12-29] MEDS: Mupirocin Ointment 22gm Tube 1 APPLIC (11:34)
--- NOTE | 2023-12-29 12:13 | PCM.OPRPT ---
Problems Associated Problem List Diagnoses (1) Chronic skin ulcer with fat layer exposed: (2) Scar contracture: (3) Sequelae of open wound of right upper extremity: (4) Excessive and redundant skin and subcutaneous tissue: (5) Intertrigo: (6) Skin laxity: (7) Recent weight loss: (8) Methicillin resistant Staphylococcus epidermidis infection: (9) DM type 2, goal HbA1c < 7%: (10) Smoker: Report of Operation Date of Procedure: 12/29/23 Pre-Operative Diagnosis: 1. Nonhealing diabetic MRSE ulcer right arm. 2. Scar contracture right axilla. 3. Late effect open wound right axilla, sequela. 4. Excessive and redundant skin and subcutaneous tissue right arm and axilla. 5. Right axillary intertrigo. 6. Skin laxity. 7. Recent weight loss. 8. MRSE infection right arm. 9. Diabetes mellitus. 10. Smoker. Post-Operative Diagnosis: Same. Surgery/Procedure Performed:: 1. Surgical preparation right arm with excisional debridement nonhealing diabetic MRSE ulcer and 20 cm complex secondary wound closure. 2. Surgical preparation right axilla with excision painful scar contracture deformity right axilla and z-plasties reconsruction (10.25 cm2). Description of Surgical Findings:: 53 year old woman presents for evaluation of right arm incision and wound after her surgery on 06/21/23 where she underwent dermolipectomy right arm and axilla with 45 cm layered closure. She developed an abscess on her right upper arm below her incision, that required draining, in the office, on 07/27/23. The wound culture on 07/27/23, showed Methicillin resistant Staphylococcus simulans and MRSE. Both were sensitive to Doxycycline, which she completed. The culture also showed Corynebacterium amycolatum that is a skin contaminant. She has been using Silver to the right arm tunnel where the abscess was drained. She states she is having a harder time packing the ulcer where the abscess was located, it has gotten smaller in size. She also developed an ulceration in the right axilla which has since healed but developed a painful scar contracture. Patient was informed of the risks and complications of the procedure including alternatives to surgery. These were discussed with the patient personally. Patient voices understanding and wishes to proceed. Some of the risks and complications were included in a form from the [employer]. Potential risks and complications included but not inclusive of bleeding, infection, seroma, hematoma, bruising, swelling, prolonged need for drains, loss of sensation to skin, wound breakdown, need for wound care, poor scarring, poor aesthetic outcome, intra operative cardiac or neurologic events, DVT, PE, and reaction to anesthesia. I used Orestes absorbable hemostat, (I used 2 units). Reference Number - [id number]. Device Identifier Number - [id number]. Lot Number - [id number]. Expiration - 05/04/28. Reference Number - [id number]. Device Identifier Number - [id number]. Lot Number - [id number]. Expiration - 01/02/28. Surgeon: Chidi Mckee MD american sign language interpreter: Jessica Lakhani RNFA Type of Anesthesia: General Anesthesiologist: Papito Fiore MD and Dieuodnne Blas CRNA Specimen's removed: Nonhealing diabetic MRSE ulcer right arm and painful scar contracture deformity right axilla to Pathology and Microbiology. Drains: Patrick. Estimated Blood Loss (mL): 150. Description of Procedure: Patient was taken to OR in supine position and was placed under general anesthesia.? The right upper extremity and axillary areas were prepped and draped in the usual fashion.? SCD's were placed for DVT prophylaxis.? Perioperative antibiotics were given intravenously.? I marked out the nonhealing ulcer with a horizontal ellipse. ? Using xylocaine with epinephrine, the markings were infiltrated.? After waiting 5 minutes for the anesthetic to take effect,? I made an elliptical incision to encompass the nonhealing ulcer.? Dissection was carried down into the deeper subcutaneous tissue toward the muscular fascia. There was capsular scar tissue present as a result of the persistent drainage from the seroma.? No pus was seen. ?A lot of fat necrosis was present. The capsular scar tissue was excised. The fat necrosis was excised and debrided.? ?A lot of the fat necrosis extended to the horizontal incision. After excising the excess fat necrosis I incorporated the initial horizontal elliptical incision which was inferior to the initial incision and extended the elliptical incision. I dissected the resultant skin flaps to aid in advancement of the skin edges to minimize tension on the closure. The ulcer was irrigated with saline.? Hemostasis was obtained with electrocautery.? I placed a size 15 Patrick drain through a separate stab incision distal to the incision and secured to the skin with 3-0 Nylon purse string suture.? I sprayed Orestes absorbable hemostat into the ulcer to minimize seroma formation.? I used 2 vials.? The ulcer was then closed in a multiple layered complex secondary wound closure fashion with 3-0 Monocryl figure of eight interrupted sutures for the superficial fascia. The deep dermis and subcutaneous tissue was approximated with 3-0 Monocryl interrupted sutures.? The skin was approximated with 4-0 Prolene simple interrupted sutures.? The length of the complex secondary wound closure was 20 cm.? I lifted the right arm and marked the contracture in the right axilla. I designed two Z-plasties at 45 degree angles. The length of the limbs were 2.5 cm for the distal z-plasty and 2 cm for the proximal z-plasty. The horizontal limb scar was excised into the subcutaneous tissue. Incisions were made through the limbs of the Z-plasty into the subcutaneous tissue. The Z-plasty flaps were transposed into the wound with minimal tension and minimal distortion. Hemostasis was obtained with electrocautery. There was a little of the Orestes left from the arm wound and I sprayed some into the axillary wound. After transposing the Z-plasty flaps, I closed the wounds with 3-0 Monocryl interrupted sutures for the deep dermis and subcutaneous tissue. The skin was approximated with 4-0 Prolene simple interrupted sutures. I lifted the right arm again to see if additional Z-plasty was necessary. There was no remaining contracture seen. Two Z-plasties were designed at 45 degrees. The size of the axillary wound and the size of the Z-plasty flaps needed to close the scar contracture wound was 10.25 cm2. Tissue excised from the right arm and axilla was sent to Pathology for analysis to rule out carcinoma and to Microbiology for culture. A positive culture will necessitate antibiotic therapy. Antibiotic ointment was applied to the incision followed by Kerlix gauze and ABD pads and followed by a compression alem wrap. Patient tolerated the procedure well and was sent to PACU in satisfactory condition. Patient will be sent home on antibiotics and pain medication. She will keep her right arm elevated during the initial postoperative period. Patient will followup in a week for a wound check and for discussion of the pathology report and for discussion of the microbiology report. A positive culture will necessitate antibiotic therapy. Will remove the sutures in 2-3 weeks.? Will remove the drain in 10-14 days. Encouraged patient to stop smoking as it may have deleterious effects on wound healing. Grafts/Implants Used: Orestes. Procedure Start Time: 10:21 Procedure Stop Time: 12:05 Complications None. Admit VTE Documentation VTE Present on Admission: No VTE Mechan Device Prophylaxis: SCD's VTE Pharm Prophylaxis ordered?: No Addendum Addendum: Surgical Charges CPT - 31055 ICD-10 - L98.492, L90.5, S41.101S, L98.7, L57.4, L30.4, R63.4, E11.9, A49.8, F17.200 [id number] L98.492, L90.5, S41.101S, L98.7, L57.4, L30.4, R63.4, E11.9, A49.8, F17.200 04170 L90.5, S41.101S, L98.492, L98.7, L57.4, L30.4, R63.4, E11.9, A49.8, F17.200
[2023-12-29 12:15] VITALS: BP 143/86; BP 173/86; PULSE 75; PULSE 90; RESP 16; TEMP 36.2; O2SAT 97
[2023-12-29 12:17] VITALS: BP 149/81; PULSE 81; RESP 16; O2SAT 98
[2023-12-29 12:30] VITALS: BP 127/68; PULSE 72; RESP 16; O2SAT 98
--- NOTE | 2023-12-29 12:31 | DCINST_ITS ---
Discharge Instructions Diet Discharge Diet: No restrictions and - (encourage nutritional supplementation with protein to help the healing process.) Activity Discharge Activity: May Drive (when not taking pain medication.), May Not Shower (until the drain is removed.) and - (elevate right arm. no heavy lifting.) May resume sexual activity in: 10-14 days Weight Bearing Status: Weight bearing as tolerated Lifting Restrictions: 20 lbs. Keep extremity elevated above heart level: Right Arm Dressing / Incision Call your doctor if your incision/area has: Continuous Slow Oozing, Sudden Increased Bleeding, Increased Pain/ Swelling, Increased Redness, Foul Smelling Discharge and Swelling at the incision site Call your doctor if you observe: Fever of 101 or Higher, Coldness, Increased Pain, Shortness of breath, Chest pain, Calf discomfort and Uncontrolled pain Change Dressing in: do not change dressing (will change operative dressing in the office.) Cleanse incision/area with: Keep Dressing Clean & Dry and - (may get incisions wet in the shower after the drain is removed.) Drain: Suction (empty and record drainage output qdaily.) Follow Up Care Please Follow Up With: Chidi Mckee MD When: one week. call [phone] for appt. Test Results: Test results from this visit will be discussed in further detail at your follow- up appointment, if applicable. Discharge Plan Admission Primary Reason for Your Visit: excision nonhealing MRSA ulcer with complex secondary wound closure Attending Provider: Chidi Mckee Primary Care Provider: Clau Grimm Instructions Print Language: Hong [place]er Discharge Orders/Prescriptions Prescriptions: New doxycycline hyclate 100 mg capsule 100 mg PO BID Qty: 28 2RF L.acidoph,saliva-B.bif-S.therm [Acidophilus Probiotic Blend] 175 mg capsule 1 cap PO DAILY Qty: 30 1RF oxycodone-acetaminophen [Percocet] 5-325 mg tablet 1 tab PO Q6H PRN (Reason: pain (scale score 7-10)) 7 Days Qty: 28 0RF Rx Instructions: 28 tabs (twenty-eight) Continued albuterol sulfate [Ventolin HFA] 90 mcg/actuation HFA aerosol inhaler 2 puff inhalation Q4H PRN (Reason: shortness of breath or wheezing) Patient Comments: inhale 2 puffs by mouth every 4 hours if needed for shortness of breath or wheezing omeprazole 40 mg capsule,delayed release(DR/EC) 40 mg PO PRN Referrals / Follow Up: Chidi Mckee MD [Med Staff - Active Staff] - In 1 Week Clau Grimm MD [Primary Care Provider] - Disposition Disposition (needs filled in before D/C Order can be placed): Home, Self Care
[2023-12-29 12:40] VITALS: BP 120/65; BP 147/87; PULSE 70; RESP 16; TEMP 36.5; O2SAT 98
[2023-12-29] MEDS: Acetaminophen 325 MG Tablet PO (13:16)
[2023-12-29] MEDS: oxyCODONE 5 MG Tablet PO (13:16)
== END 2023-12-29 14:21 | disposition home or self-care (01) ==
LOC: SDC 08:16 → AC 08:17
PROVIDERS: Referring Provider Surgery; Visit Provider Surgery
PROC: (CPT 15002; principal; 2023-12-29 09:15)
DX: T81.89XA Other complications of procedures, not elsewhere classified, initial encounter (principal); L98.492 Non-pressure chronic ulcer of skin of other sites with fat layer exposed; J43.9 Emphysema, unspecified; E11.9 Type 2 diabetes mellitus without complications; L30.4 Erythema intertrigo; L98.7 Excessive and redundant skin and subcutaneous tissue; L90.5 Scar conditions and fibrosis of skin; S41.101S Unspecified open wound of right upper arm, sequela; L57.4 Cutis laxa senilis; L02.413 Cutaneous abscess of right upper limb; I10 Essential (primary) hypertension; K21.9 Gastro-esophageal reflux disease without esophagitis; F17.290 Nicotine dependence, other tobacco product, uncomplicated; Z79.899 Other long term (current) drug therapy
CPT/HCPCS: 15002; 14041; 13160; 00400; 82962; 87070; 87075; 87102; 87176; 87205; 87206; 88304; J7120; J2405

== ENCOUNTER → 2024-03-15 | Outpatient (CLI) | payer MEDICAID, SELFPAY | END | disposition home or self-care (01) | LOC: LABSPEC 13:04 | PROVIDERS: Referring Provider Nurse Practitioner Family; Visit Provider Nurse Practitioner Family | DX: T81.89XA Other complications of procedures, not elsewhere classified, initial encounter (principal); Z87.891 Personal history of nicotine dependence; X58.XXXA Exposure to other specified factors, initial encounter | CPT/HCPCS: 87070; 87075; 87205 ==